=== PATIENT | female | born 1945 | race Caucasian/White ===

== ENCOUNTER 2022-07-08 09:55 | Emergency (ER) | payer OTHER ==
[2022-07-08 10:26] LABS: Urine Blood Trace-intact (Negative); Urine Glucose Negative (Negative); Urine Protein Negative (Negative)
[2022-07-08 10:34] LABS: Transitional Epithelial <5 /HPF (None Seen); Urine Bacteria <20 /HPF (<20); Urine Mucus Slight /HPF (None Seen); Urine WBC Clump Few /HPF (None Seen)
--- NOTE | 2022-07-08 10:39 | ER ---
Nurse's Notes [facility] Name: Nichole Saravia Age: 76 yrs Sex: Female : 1945 Arrival Date: 07/08/2022 Time: 09:56 Bed IW1 Private MD: ALICIA RIVER Diagnosis: UTI/ Urinary tract infection, site not specified Presentation: 07/08 10:00 Chief complaint: Patient states: Pt reports burning with urination and urinary kb3 frequency that began 2 weeks ago, she took a 7-day course of Keflex and symptoms resolved for 3 days but then returned. Pt states symptoms returned 3 days ago. Pt denies fever and flank pain. Coronavirus screen: Vaccine status: Patient reports being unvaccinated. Ebola Screen: Patient negative for fever greater than or equal to 101.5 degrees Fahrenheit, and additional compatible Ebola Virus Disease symptoms Patient denies exposure to infectious person. Patient denies travel to an Ebola-affected area in the 21 days before illness onset. Initial Sepsis Screen: Does the patient meet any 2 criteria? No. Patient's initial sepsis screen is negative. Does the patient have a suspected source of infection? No. Patient's initial sepsis screen is negative. Risk Assessment: Do you want to hurt yourself or someone else? Patient reports no desire to harm self or others. Onset of symptoms was July 05, 2022. 10:00 Method Of Arrival: Ambulatory kb3 10:00 Acuity: TORY 3 kb3 Triage Assessment: 10:03 General: Appears in no apparent distress. Behavior is calm, cooperative. Pain: Denies kb3 pain. Historical: - Allergies: 10:03 No Known Allergies; kb3 - PMHx: 10:03 Hypertensive disorder; Hypercholesterolemia; Cerebrovascular accident; Kidney stone; kb3 - PSHx: 10:03 Cholecystectomy; hysterectomy; Breast Bx; kb3 - Immunization history:: Adult Immunizations up to date, Client reports having NOT received the Covid vaccine. Last tetanus immunization: < 5 years ago. - Social history:: Smoking status: Patient reports the use of cigarette tobacco products, smokes one-half pack cigarettes per day. Screenin:46 Abuse screen: Denies threats or abuse. Denies injuries from another. Nutritional jl7 screening: No deficits noted. Tuberculosis screening: No symptoms or risk factors identified. Fall Risk None identified. Vital Signs: 10:00 BP 129 / 80; Pulse 77; Resp 18; Temp 97; Pulse Ox 99% ; Weight 68.04 kg; Height 5 ft. 4 kb3 in. (162.56 cm); Pain 0/10; 10:00 Body Mass Index 25.75 (68.04 kg, 162.56 cm) kb3 ED Course: 09:56 Patient arrived in ED. am2 09:56 ALICIA RIVER is Private Physician. am2 09:56 [facility] kb 09:56 Jaime Moran MD is Attending Physician. kb 10:03 Triage completed. kb3 10:03 Arm band placed on right wrist. kb3 10:32 Urine Microscopic Only Sent. kb3 10:33 Chandrakant Carrillo DO is Attending Physician. kb 10:42 Lexy Moctezuma, BOBBI is Primary Nurse. kb3 10:46 Patient has correct armband on for positive identification. jl7 10:46 No provider procedures requiring assistance completed. Patient did not have IV access jl7 during this emergency room visit. Administered Medications: No medications were administered Medication: 10:46 VIS not applicable for this client. jl7 Outcome: 10:38 Discharge ordered by MD. kb 10:46 Discharged to home ambulatory. jl7 10:46 Condition: stable 10:46 Discharge instructions given to patient, family, Instructed on discharge instructions, follow up and referral plans. medication usage, Demonstrated understanding of instructions, follow-up care, medications, Prescriptions given X 1. 10:48 Patient left the ED. jl7 Addendum: 07/11/2022 07:29 Addendum: Culture Results: Positive urine culture. No further action required. Bacteria i w sensitive to prescribed antibiotic. Signatures: Jesika Borden FNP-C FNP-Roxanna Caba RN RN iw Tom Huff RN RN jl7 Kylee Sterling am2 Lexy Moctezuma, RN RN kb3
--- NOTE | 2022-07-08 10:39 | EDPHYS ---
Physician Documentation [facility] Name: Nichole Saravia Age: 76 yrs Sex: Female : 1945 Arrival Date: 07/08/2022 Time: 09:56 Bed IW1 Private MD: ALICIA RIVER ED Physician Chandrakant Carrillo HPI: 07/08 10:36 This 76 yrs old Female presents to ER via Ambulatory with complaints of Urinary kb Frequency. 10:36 The patient presents with urinary symptoms, dysuria, frequency. Onset: The kb symptoms/episode began/occurred 4 day(s) ago. Modifying factors: The symptoms are alleviated by nothing, the symptoms are aggravated by urinating. Associated signs and symptoms: Pertinent positives: dysuria, urinary frequency. Severity of symptoms: At their worst the symptoms were moderate, in the emergency department the symptoms are unchanged. The patient has experienced similar episodes in the past. The patient has been recently seen by a physician:. Pt reports dysuria and urinary frequency for 4 days. States it is progressively getting worse. Reports she was seen at an 2 weeks ago for similar symptoms and put on keflex, but symptoms returned after completion of medication. Historical: - Allergies: 10:03 No Known Allergies; kb3 - PMHx: 10:03 Hypertensive disorder; Hypercholesterolemia; Cerebrovascular accident; Kidney stone; kb3 - PSHx: 10:03 Cholecystectomy; hysterectomy; Breast Bx; kb3 - Immunization history:: Adult Immunizations up to date, Client reports having NOT received the Covid vaccine. Last tetanus immunization: < 5 years ago. - Social history:: Smoking status: Patient reports the use of cigarette tobacco products, smokes one-half pack cigarettes per day. ROS: 10:35 Constitutional: Negative for fever, chills, and weight loss. kb 10:35 : Positive for urinary symptoms, urinary frequency, burning with urination. 10:35 All other systems are negative. Exam: 10:36 Constitutional: This is a well developed, well nourished patient who is awake, alert, kb and in no acute distress. Head/Face: Normocephalic, atraumatic. ENT: Moist Mucous membranes Cardiovascular: Regular rate and rhythm with a normal S1 and S2. No gallops, murmurs, or rubs. No pulse deficits. Respiratory: Respirations even and unlabored. No increased work of breathing. Talking in full sentences Abdomen/GI: Soft, non-tender. No distention Back: No spinal tenderness. No costovertebral tenderness. Full range of motion. Skin: Warm, dry with normal turgor. Normal color. MS/ Extremity: Pulses equal, no cyanosis. Neurovascular intact. Full, normal range of motion. Neuro: Awake and alert, GCS 15, oriented to person, place, time, and situation. Moves all extremities. Normal gait. Psych: Awake, alert, with orientation to person, place and time. Behavior, mood, and affect are within normal limits. Vital Signs: 10:00 BP 129 / 80; Pulse 77; Resp 18; Temp 97; Pulse Ox 99% ; Weight 68.04 kg; Height 5 ft. 4 kb3 in. (162.56 cm); Pain 0/10; 10:00 Body Mass Index 25.75 (68.04 kg, 162.56 cm) kb3 MDM: 09:56 Patient medically screened. kb 10:35 Data reviewed: vital signs, nurses notes. Data interpreted: Pulse oximetry: on room air kb is 99 %. Interpretation: normal. Counseling: I had a detailed discussion with the patient and/or guardian regarding: the historical points, exam findings, and any diagnostic results supporting the discharge/admit diagnosis, lab results, the need for outpatient follow up, a family practitioner, to return to the emergency department if symptoms worsen or persist or if there are any questions or concerns that arise at home. 07/08 10:02 Order name: Urine Microscopic Only; Complete Time: 10:35 kb 07/08 10:26 Order name: Urine Dipstick-Ancillary; Complete Time: 10:30 EDMS 07/08 10:02 Order name: Urine Dipstick-Ancillary (obtain specimen); Complete Time: 10:32 kb 07/08 10:37 Order name: Urine Culture EDMS Administered Medications: No medications were administered Disposition: 10:44 Co-signature as Attending Physician, Chandrakant MONTGOMERY was immediately available on-site ms3 in the Emergency Department for consultation in the care of the patient. Disposition Summary: 07/08/22 10:38 Discharge Ordered Location: Home kb Condition: Stable kb Diagnosis - UTI/ Urinary tract infection, site not specified kb Followup: kb - With: Emergency Department - When: As needed - Reason: Worsening of condition Followup: kb - With: Private Physician - When: 2 - 3 days - Reason: Recheck today's complaints, Continuance of care, Re-evaluation by your physician Discharge Instructions: - Discharge Summary Sheet kb - Urinary Tract Infection, Adult, [id number] kb Forms: - Medication Reconciliation Form kb - Thank You Letter kb - Antibiotic Education kb - Prescription Opioid Use kb Prescriptions: - Augmentin 875-125 mg Oral Tablet - take 1 tablet by ORAL route every 12 hours for 10 days; 20 tablet; Refills: 0, kb Product Selection Permitted Signatures: Dispatcher [employer] EDMS Jesika Borden, LIVESTOCK COUNTER-C LIVESTOCK COUNTER-Chandrakant Wilcox DO DO ms3 Lexy Moctezuma, RN RN kb3
[2022-07-08 10:52] VITALS: BP 129/80; TEMP 97; O2SAT 99
== END 2022-07-08 10:48 | disposition home or self-care (01) ==
LOC: ER 09:55
DX: N39.0 Urinary tract infection, site not specified (principal); I10 Essential (primary) hypertension; F17.210 Nicotine dependence, cigarettes, uncomplicated
CPT/HCPCS: 81003; 81015; 87077; 87086; 87088; 87186; 99283

== ENCOUNTER 2023-10-30 06:30 | Day surgery (SDC) | payer OTHER ==
[2023-10-30] MEDS: Ringers Lactate 1,000 ML IV ONE (07:15)
[2023-10-30 07:41] LABS: Absolute Basophils 0.1 K/uL (0-0.5); Absolute Eosinophils 0.1 K/uL (0-0.5); Absolute Lymphocytes (CBC) 1.6 K/uL (0.7-4.9); Absolute Monocytes 0.5 K/uL (0.1-1.3); Absolute Neutrophil 2.8 K/uL (1.8-8.0); Basophils % 2.3 % (0-1.3); Eosinophils % 2.3 % (0-4.4); Hematocrit 34.7 % (36.0-45.0); Hemoglobin 11.8 g/dL (12.0-15.0); Lymphocytes % 30.9 % (15.3-44.8); MCH 32.9 pg (27.0-35.0); MCHC 34.1 g/dL (32.0-36.0); MCV 96.6 fL (80-100); MPV 10.5 fL (7.6-11.3); Monocytes % 10.3 % (3.3-12.3); Neutrophils % 54.2 % (41.7-73.7); Nucleated Red Blood Cells % 0.3 % (0-0); Platelets 188 thou/uL (152-406); Red Cell Distribution Width 13.6 % (12.1-15.2)
[2023-10-30 07:59] LABS: Anion Gap 11.7 mEq/L (5.0-15.0); Potassium 3.7 mEq/L (3.5-5.1)
--- NOTE | 2023-10-30 08:09 | RAD REPORT ---
EXAM DESCRIPTION: RAD - Chest Pa And Lat (2 Views) - 10/30/2023 7:40 am CLINICAL HISTORY: PREOP. Hypertension COMPARISON: Chest Pa And Lat (2 Views) dated 11/16/2022 TECHNIQUE: PA and lateral views of the chest were obtained. FINDINGS: The lungs are clear. Heart size is normal and central vasculature is within normal limits. No pleural effusion or pneumothorax seen. No acute bony finding noted. IMPRESSION: No acute cardiopulmonary process.
[2023-10-30] MEDS ORDERED: FENTANYL CITR 100 MCG/2 ML ONE (09:20)
[2023-10-30] MEDS ORDERED: propofoL 200 MG/20 ML VIAL IV ONE (09:20)
[2023-10-30] MEDS ORDERED: ONDANSETRON 4 MG/2 ML VIAL ONE (09:20)
[2023-10-30] MEDS ORDERED: LIDOCAINE 2% MPF 5 ML VIAL ONE (09:20)
[2023-10-30] MEDS: CEFAZOLIN SODIUM 1 GM/VIAL ONE (09:29)
[2023-10-30] MEDS ORDERED: EPHEDRINE SULF 50 MG/ML VIAL ONE (09:53)
[2023-10-30] MEDS ORDERED: dexAMETHasone 10 MG/ML VIAL ONE (09:54)
--- NOTE | 2023-10-30 10:29 | P.BOP ---
Preoperative diagnosis: Prolapsed bleeding tender hemorrhoid Postoperative diagnosis: same Primary procedure: EUa, Anoscopy, rigid proctoscopy, internal and external hemorroidectomy Estimated blood loss: <10cc Specimen: Ext and Int hemorrhoid Findings: see dicta Anesthesia: General Complications: None Drain(s): Other (surgicall) Transferred to: Recovery Room Condition: Good
[2023-10-30 10:32] LABS: White Blood Cell Scan OK (OK)
[2023-10-30 10:33] LABS: Blood Morphology Comment NOT SEEN (NOT SEEN); Platelet Estimate ADEQ; Platelets Clumped FEW
[2023-10-30 11:15] VITALS: O2SAT 96
[2023-10-30] MEDS: CODEINE 30MG/APAP 300MG TAB ONE (11:35)
[2023-10-30 12:53] VITALS: BP 137/59; TEMP 97.3
--- NOTE | 2023-10-30 20:52 | DS ---
Date of Discharge: 10/30/2023 Diagnosis: Prolapsed bleeding, tender external and internal hemorrhoids, and mild rectal prolapse, r educible. Procedures: Examination under anesthesia, anoscopy, rigid proctoscopy, internal and external hemorrh oidectomy. Disposition: Home. Condition: Stable. Plan: Sitz baths 4 times a day and after every bowel movement, avoid constipation. KIM/LAURA Voice ID: [id number] Report ID: [id number]
--- NOTE | 2023-10-30 21:07 | OP ---
Date of Procedure: 10/30/2023 Surgeon: Celio Almonte MD Preoperative Diagnoses: Prolapsed bleeding, tender hemorrhoids. Postoperative Diagnosis: Internal and external prolapsed bleeding, tender hemorrhoids, but also she has mild rectal prolapse. Procedures: Examination under anesthesia, anoscopy, rigid proctoscopy, external and internal hemorrh oidectomy, 2 bundles. Estimated Blood Loss: Less than 10 cc. Specimens: External and internal hemorrhoids. Findings: The patient has multiple hemorrhoids. If you see that area, it has a small rectal prolaps e in that region that may have to be addressed by colorectal surgeon. Eventually, at this time, we a re going to trying to take care of the hemorrhoids for her bleeding at this moment and then give her a chance to eventually go to the colorectal surgeon to see if there is something that have to be done for the mild rectal prolapse, which probably is just hemorrhoids. Anesthesia: General. Complications: None. Gauze: Surgicel gauze. Indications For Procedure: This is a case of an 78-year-old patient who comes to us with bleeding he morrhoids. There are some we can see, some other ones come from inside the anus. So, in the office, it is hard to see. She is trying to avoid constipation and avoid straining and she has most of the time handled this. At this time, it was just getting worse, so she wants to have this removed. Not too long ago, probably about a year ago, she had also a similar case and this looks to be different. The benefits, alternatives, and risks of EUA, anoscopy, proctoscopy, possible hemorrhoidectomy fully discussed, which include, but not limited to infection, bleeding, damage to adjacent structures, ane sthesia complication, anal stricture and incontinence, VA, and . She also understands this may not relieve symptoms and she might need more than one surgical intervention. She understood, signed a consent. Description Of Procedure: The patient brought to the operating room, placed in supine position, anes thesia was done without complication. The patient was placed in lithotomy position with proper prote ction. A time-out was called. Rectal examination was done followed by a rigid proctoscopy to about 15 cm, we noticed internal and external hemorrhoids. In fact, not even before we even put the instru ments, we have already 2 hemorrhoids that are bleeding. At that moment, when we did rigid sig, we co nfirmed the area and then the anoscopy was placed with a window on the side to identify those 2 bleed ing hemorrhoids. One was internal and one was external. We noticed also the patient has a very mild rectal prolapse that is allowing all this area to bulge probably somehow contributed to this hemorrh oidal upsetting. So, we identified those 2 bundles and what we did is just we opened the anoderm and each one was removed individually in the posterior area of the anus. It was right and left posterio r lateral. In each case, we opened the anoderm and dissected the hemorrhoidal plexus away from the s phincter and transected that with the Harmonic Scalpel and the external was using the same technique and then each one was closed with the help of 3-0 chromic sutures. Once the anoderm was approximated , we checked we have a Surgicel over that area. We checked for any other bleeding or any hematomas, none. We injected some local anesthetic and when we checked once again, there was no bleeding. So, at that moment, I proceeded to remove the anoscope from that region, inspected the area once again, o btained instrument and sponge count, which was correct and then sent the patient to recovery room in stable condition. KIM/LAURA Voice ID: [id number] Report ID: [id number]
--- NOTE | 2023-10-31 14:28 | EKG ---
Test Date: 2023-10-30 Test Time: 06:56:51 Machine Bander And Cellophaner: YODIT MEASUREMENT RESULTS: Intervals: Rate: 72 MD: 160 QRSD: 98 QT: 400 QTc: 438 [place]: P: 33 MD: 160 QRS: -30 T: -8 INTERPRETIVE STATEMENTS: Normal sinus rhythm Left axis deviation Abnormal ECG Compared to ECG 11/16/2022 14:37:00 Left-axis deviation now present Left anterior fascicular block no longer present ST (T wave) deviation no longer present Electronically Signed On 10-31-23 14:23:56 CDT by Doug Clarke
== END 2023-10-30 12:05 | disposition home or self-care (01) ==
LOC: PRE 06:30 → OR 12:05
PROVIDERS: ATTEND Surgery
PROC: 06BY4ZC Excision of Hemorrhoidal Plexus, Percutaneous Endoscopic Approach (ICD-10-PCS; 2023-10-30)
PROC: 0DJD8ZZ Inspection of Lower Intestinal Tract, Via Natural or Artificial Opening Endoscopic (ICD-10-PCS; principal; 2023-10-30 08:30)
DX: K64.8 Other hemorrhoids (principal); K62.3 Rectal prolapse
CPT/HCPCS: 93005; 85025; 80048; 36415; 88302; 71046; 45300; 46260; J2704; J2001; J3010; J1100; J2405; J7120; J0690; 88304

== ENCOUNTER 2024-07-19 14:32 | Emergency (ER) | payer OTHER ==
--- NOTE | 2024-07-19 16:39 | ER ---
Nurse's Notes [facility] Name: Nichole Saravia Age: 79 yrs Sex: Female : 1945 Arrival Date: 07/19/2024 Time: 14:32 Bed Waiting Private MD: Diagnosis: Historical: ED Course: 07/19 14:46 Patient arrived in ED. mg5 15:30 Patient's name was called from ER lobby. No response. aa5 16:01 Kody Nicole FNP-C is PHCP. dr5 16:01 Nir Gandara MD is Attending Physician. dr5 16:10 Patient's name was called from ER lobby. No response. aa5 16:38 Patient's name was called from ER lobby. No response. Unable to locate patient. Will aa5 disposition as left without being seen by a provider. Administered Medications: No medications were administered Outcome: 16:38 Patient left the ED. aa5 Signatures: Mildred Torres RN RN aa5 Meghan Laird mg5 Kody Nicole FNP-C MANAGER MEDIA RELATIONS-Cdr5 Corrections: (The following items were deleted from the chart) 15:36 15:32 Chief complaint: Patient states: abdominal cramping and diarrhea that began 1 day aa5 ago. Pt reports fatigue, states "I just don't feel good" aa5 15:36 15:32 Transition of care: patient was received from another setting of care (long-term [facility] care facility), [facility] aa5 15:36 15:32 Onset of symptoms was July 2024 aa5 aa5 15:36 15:32 Risk Assessment: Do you want to hurt yourself or someone else? Patient reports no aa5 desire to harm self or others. aa5 15:36 15:32 Initial Sepsis Screen: Does the patient meet any 2 criteria? No. Patient's aa5 initial sepsis screen is negative. Does the patient have a suspected source of infection? No. Patient's initial sepsis screen is negative. aa5 15:36 15:32 Ebola Screen: Patient denies travel to an Ebola-affected area in the 21 days aa5 before illness onset. aa5 15:36 15:32 Coronavirus screen: diarrhea, aa5 aa5 15:36 15:32 Acuity: TORY 3 aa5 aa5 15:36 15:32 Method Of Arrival: Wheelchair aa5 aa5 15:36 15:32 BP 130 / 64; Pulse 78bpm; Resp 18bpm; Spontaneous; Pulse Ox 99% RA; Temp 98.7F aa5 Oral; 86.18 kg Reported; Height 5 ft. 7 in. Reported; BMI: 29.7; aa5 15:37 15:34 Triage completed. aa5 aa5 15:37 15:30 Arm band placed on aa5 aa5 15:37 15:30 Allergies: No Known Allergies; aa5 aa5 15:37 15:30 PMHx: Cerebrovascular accident; aa5 aa5 15:37 15:30 PMHx: Hypercholesterolemia; aa5 aa5 15:37 15:30 PMHx: Hypertensive disorder; aa5 aa5 15:37 15:30 PMHx: Kidney stone; aa5 aa5 15:37 15:30 PMHx: Psoriatic arthritis (Unknown); aa5 aa5 15:37 15:30 PMHx: Anxiety; aa5 aa5 15:37 15:30 PMHx: Atrial fibrillation; aa5 aa5 15:37 15:30 PMHx: GERD; aa5 aa5 15:37 15:30 PMHx: Diabetes mellitus; aa5 aa5 15:37 15:30 PMHx: Breast Cancer; aa5 aa5 15:37 15:30 PMHx: Skin cancer; aa5 aa5 15:37 15:30 PMHx: RLS; aa5 aa5 15:37 15:30 PMHx: Heart failure; aa5 aa5 15:37 15:30 PMHx: osteoarhritis; aa5 aa5 15:37 15:30 PSHx: Breast Bx; aa5 aa5 15:37 15:30 PSHx: Cholecystectomy; aa5 aa5 15:37 15:30 PSHx: hysterectomy; aa5 aa5 15:37 15:30 Social history: Smoking status: Patient denies any tobacco usage or history of. aa5 aa5 15:37 15:30 Infectious Disease History: Denies. aa5 aa5 15:37 15:30 Immunization history: Adult Immunizations unknown, aa5 aa5
== END 2024-07-19 16:38 | disposition left against medical advice (07) ==
LOC: ER 14:32
DX: Z02.9 Encounter for administrative examinations, unspecified (principal)

== ENCOUNTER 2024-12-30 11:14 | Day surgery (SDC) | payer OTHER ==
--- NOTE | 2024-12-29 10:08 | RAD REPORT ---
Procedure: Chest Pa And Lat (2 Views) HISTORY: Cough COMPARISON: 2023 FINDINGS: The lungs appear clear of acute infiltrate. No significant pleural effusion noted. The heart is mildly enlarged. IMPRESSION: No acute abnormality is displayed.
[2024-12-29 10:45] LABS: Absolute Basophils 0.1 K/uL (0-0.5); Absolute Eosinophils 0.1 K/uL (0-0.5); Absolute Monocytes 0.4 K/uL (0.1-1.3); Absolute Neutrophil 2.5 K/uL (1.8-8.0); Basophils % 2.7 % (0-1.3); Eosinophils % 1.6 % (0-4.4); Hematocrit 30.2 % (36.0-45.0); Hemoglobin 10.3 g/dL (12.0-15.0); Lymphocytes % 24.9 % (15.3-44.8); MCH 34.4 pg (27.0-35.0); MCHC 33.9 g/dL (32.0-36.0); MCV 101.6 fL (80-100); MPV 10.9 fL (7.6-11.3); Neutrophils % 60.8 % (41.7-73.7); Nucleated Red Blood Cells % 0.1 % (0-0); Platelets 164 thou/uL (152-406); RBC Red Blood Cell Count 2.98 M/uL (3.86-4.86); Red Cell Distribution Width 14.3 % (12.1-15.2)
[2024-12-29 10:51] LABS: PT Prothrombin Time 11.9 SECONDS (10-13.0); PTT, Activated Partial Thromb 27.5 SECONDS (27.2-37.4); Protime INR 1.05
[2024-12-29 11:10] LABS: Anion Gap 7.5 mEq/L (5.0-15.0); Potassium 3.5 mEq/L (3.5-5.1)
[2024-12-30] MEDS ORDERED: NA CHLORIDE 0.9% 500 ML ONE (11:19)
[2024-12-30] MEDS ORDERED: LIDOCAINE 1% 20 ML MDV ONE (12:56)
[2024-12-30] MEDS ORDERED: HEPARIN 5000 UNIT/ML 1 ML VIAL ONE (12:56)
[2024-12-30] MEDS ORDERED: CLOPIDOGREL 75 MG TABLET ONE (12:56)
[2024-12-30] MEDS ORDERED: HEPARIN 10,000 UNIT/10 ML VIAL IV ONE (12:56)
[2024-12-30] MEDS ORDERED: VERAPAMIL HCL 10 MG/4 ML VIAL IV ONE (12:56)
[2024-12-30] MEDS ORDERED: HEPA 1000U/500MLS 2,000 UNIT/1,000 ML BAG IV ONE (12:56)
[2024-12-30] MEDS ORDERED: TICAGRELOR 90 MG TABLET PO ONE (12:56)
[2024-12-30] MEDS ORDERED: FENTANYL CITR 100 MCG/2 ML ONE (12:57)
[2024-12-30] MEDS ORDERED: MIDAZOLAM HCL 2 MG/2 ML INJ ONE (12:57)
[2024-12-30] MEDS ORDERED: ASPIRIN 325 MG TAB ONE (12:57)
[2024-12-30] MEDS ORDERED: ATROPINE SULF 1 MG/10 ML SYR IV ONE (12:58)
[2024-12-30] MEDS ORDERED: NITROGLYCERIN 0.4 MG/TAB SL ONE (14:05)
[2024-12-30] MEDS ORDERED: ONDANSETRON 4 MG/2 ML VIAL ONE (14:09)
[2024-12-30 19:20] VITALS: BP 143/59; O2SAT 94
--- NOTE | 2025-01-05 12:49 | EKG ---
Test Date: 2024-12-29 Test Time: 09:18:23 Cartridge Assembling Machine Adjuster: GWENDOLYN MEASUREMENT RESULTS: Intervals: Rate: 69 VT: 152 QRSD: 100 QT: 394 QTc: 422 Welcome: P: 42 VT: 152 QRS: -42 T: 98 INTERPRETIVE STATEMENTS: Normal sinus rhythm Left axis deviation Nonspecific ST and T wave abnormality Abnormal ECG Compared to ECG 10/30/2023 06:56:51 ST (T wave) deviation now present Electronically Signed On 01-05-25 12:33:35 CDT by Marcell Keenan
== END 2024-12-30 19:43 | disposition home or self-care (01) ==
LOC: CCL 11:14
PROVIDERS: ADMIT Internal Medicine; ATTEND Internal Medicine
DX: I25.110 Atherosclerotic heart disease of native coronary artery with unstable angina pectoris (principal); I65.23 Occlusion and stenosis of bilateral carotid arteries; I10 Essential (primary) hypertension; E78.5 Hyperlipidemia, unspecified; F17.210 Nicotine dependence, cigarettes, uncomplicated; Z79.899 Other long term (current) drug therapy
CPT/HCPCS: 93005; 85025; 80048; 36415; 85610; 82947; 85347; 85730; 71046; 93458; 76937; C1893; Q9967; C1725; C9600; J1644 ×2; J2003; J2250; J3010; J2405; J7040; 99152; J0461

== ENCOUNTER 2025-05-14 12:45 | Inpatient (IN) | payer OTHER ==
[2025-05-14 13:35] LABS: Absolute Lymphocytes (CBC) 0.5 K/uL (0.7-4.9); Hematocrit 24.2 % (36.0-45.0); Hemoglobin 8.1 g/dL (12.0-15.0); MCH 32.1 pg (27.0-35.0); MCHC 33.3 g/dL (32.0-36.0); MCV 96.3 fL (80-100); MPV 10.1 fL (7.6-11.3); Nucleated RBC Absolute Count 0.0 (0-0); Nucleated Red Blood Cells % 0.1 % (0-0); RBC Red Blood Cell Count 2.51 M/uL (3.86-4.86); White Blood Count 4.30 thou/uL (4.3-10.9)
[2025-05-14 13:46] LABS: PT Prothrombin Time 13.6 SECONDS (10-13.0); Protime INR 1.21
--- NOTE | 2025-05-14 13:56 | RAD REPORT ---
EXAM: Chest Single View HISTORY: 79 years Female MALAISE COMPARISON: 04/22/2025 FINDINGS: LUNGS/PLEURA: Diffuse prominence of the pulmonary interstitium with small bilateral effusions. CARDIAC/MEDIASTINUM: Stable size and configuration. UPPER ABDOMEN: Surgical clips in the right upper quadrant. BONES: No acute abnormality. LINES/TUBES/OTHER: N/A IMPRESSION: Ill-defined bilateral airspace disease and small effusions may reflect edema and/or pneumonia. Aerati on is fractionally improved since 04/22/2025.
[2025-05-14 14:02] LABS: ALT/SGPT 18.0 U/L (13-56); AST/SGOT 37.0 U/L (15-37); Albumin 2.4 g/dL (3.4-5.0); Albumin/Globulin Ratio 0.8 (1.1-1.8); Alkaline Phosphatase 67.0 U/L (45-117); Anion Gap 9.2 mEq/L (5.0-15.0); BUN Blood Urea Nitrogen 10.0 mg/dL (7-18); Bilirubin Indirect, Calculated 0.6 mg/dL (0.2-0.8); Globulin 2.9 g/dL (2.3-3.5); Glucose Level 103.0 mg/dL (74-106); Lipase 16.0 U/L (13-75); NT PRO-BNP 1366.0 pg/mL (<450); Potassium 3.2 mEq/L (3.5-5.1); Troponin High Sensitivity 23.7 pg/mL (<58.9)
[2025-05-14 14:02] LABS: Sqamous Epithelial 20-50 /HPF (None Seen); Urine Crystals Unidentified Many /HPF (None Seen); Urine Culture Reflex Order NOT NEEDED; Urine Microscopic Reflex YN ORDER UMIC; Urine WBC Clump Occasional /HPF (None Seen); Urine Yeast (Budding) Few /HPF (None Seen)
[2025-05-14 14:04] LABS: Magnesium 0.9 mg/dL (1.6-2.4)
[2025-05-14 14:05] LABS: Influenza A Ag Negative; Influenza B Ag Negative; SARS-CoV-2 Antigen Rapid Res Negative (Negative)
[2025-05-14] MEDS ORDERED: POTASSIUM 25 MEQ EFFERV TAB ONE (14:20)
[2025-05-14] MEDS ORDERED: NA CHLORIDE 0.9% 500 ML ONE (14:20)
[2025-05-14] MEDS ORDERED: ONDANSETRON 4 MG/2 ML VIAL ONE (14:20)
[2025-05-14] MEDS ORDERED: MAGNESIUM SULFATE 1 gm IVPB 2 GM/200 ML BAG IV ONE (14:21)
--- NOTE | 2025-05-14 14:26 | ER ---
Nurse's Notes [facility] Name: Nichole Saravia Age: 79 yrs Sex: Female : 1945 Arrival Date: 05/14/2025 Time: 12:45 Bed 15 Private MD: Diagnosis: Hypomagnesemia, hypokalemia, known anemia, generalized weakness Presentation: 05/14 12:49 Chief complaint: EMS states: toned out for nausea, not feeling well, change in behavior iw per family. Coronavirus screen: At this time, the client does not indicate any symptoms associated with coronavirus-19. Ebola Screen: No symptoms or risks identified at this time. Initial Sepsis Screen: Does the patient meet any 2 criteria? No. Patient's initial sepsis screen is negative. Does the patient have a suspected source of infection? No. Patient's initial sepsis screen is negative. Risk Assessment: Do you want to hurt yourself or someone else? Patient reports no desire to harm self or others. 12:49 Method Of Arrival: EMS: [facility] iw 12:50 Acuity: TORY 3 iw Historical: - Allergies: 13:52 No Known Allergies; iw - Home Meds: 14:41 atorvastatin 20 mg oral tablet every day at bedtime [Active]; aspirin 81 mg Oral iw tablet, delayed release (enteric coated) daily [Active]; fenofibrate micronized 134 mg oral capsule daily [Active]; fluoxetine 20 mg Oral tablet daily [Active]; pantoprazole 40 mg oral tablet, delayed release (enteric coated) daily [Active]; losartan 100 mg oral tablet daily [Active]; quetiapine 50 mg oral tablet nightly [Active]; quetiapine 25 mg oral tablet nightly [Active]; - PMHx: 12:51 Hypercholesterolemia; Hypertensive disorder; iw - Immunization history:: Adult Immunizations unknown. - Infectious Disease History:: Denies. - Social history:: Smoking status: unknown. Screenin:33 [facility] ED Fall Risk Assessment (Adult) History of falling in the last 3 months, af3 including since admission No falls in past 3 months (0 pts) Confusion or Disorientation No (0 pts) Intoxicated or Sedated No (0 pts) Impaired Gait No (0 pts) Mobility Assist Device Used No (0 pt) Altered Elimination No (0 pt) Score/Fall Risk Level 0 - 2 = Low Risk Oriented to surroundings, Maintained a safe environment, Educated pt \T\ family on fall prevention, incl call for assistance when getting out of bed. Abuse screen: Denies threats or abuse. Denies injuries from another. Nutritional screening: No deficits noted. Tuberculosis screening: No symptoms or risk factors identified. Assessment: 13:33 General: Appears in no apparent distress. comfortable, well groomed, well developed, af3 Behavior is calm, cooperative, appropriate for age. Pain: Denies pain. Neuro: Level of Consciousness is awake, alert, obeys commands, Oriented to person, place, time, situation, Appropriate for age. Cardiovascular: Patient's skin is warm and dry. Respiratory: Airway is patent Respiratory effort is even, unlabored, Respiratory pattern is regular, symmetrical. GI: Abdomen is flat, Reports nausea. 14:42 Reassessment: Patient appears in no apparent distress at this time. No changes from af3 previously documented assessment. Patient and/or family updated on plan of care and expected duration. Pain level reassessed. 15:52 Reassessment: Patient appears in no apparent distress at this time. No changes from af3 previously documented assessment. Patient and/or family updated on plan of care and expected duration. Pain level reassessed. 15:52 Reassessment: Patient appears in no apparent distress at this time. No changes from af3 previously documented assessment. Patient and/or family updated on plan of care and expected duration. Pain level reassessed. Vital Signs: 12:50 BP 162 / 80; Pulse 75; Resp 19; Temp 97.6(TE); Pulse Ox 99% on 2 lpm NC; iw 14:43 BP 168 / 67; Pulse 77; Resp 18; Pulse Ox 100% on 2 lpm NC; af3 ED Course: 12:47 Patient arrived in ED. sp3 12:47 Nir Gandara MD is Attending Physician. sp3 12:51 Triage completed. iw 13:02 Roxanna Tabor, RN is Primary Nurse. iw 13:04 EKG done, by ED staff, reviewed by Nir Gandara MD. rk3 13:32 XRAY Chest (1 view) In Process Unspecified. EDMS 13:33 No provider procedures requiring assistance completed. af3 13:33 Patient has correct armband on for positive identification. Bed in low position. Call af3 light in reach. Provided Education on: call light use . 13:35 Arm band placed on. iw 14:25 Burak Romo MD is Hospitalizing Provider. sp3 16:15 Patient admitted, IV remains in place. iw Administered Medications: 14:23 Not Given (Duplicate Order): ondansetron 4 mg IVP once; over 2 minutes iw 14:42 Drug: Magnesium Sulfate IVPB 2 grams IVPB once over 2 hrs Route: IVPB; Infused Over: 2 af3 hrs; Site: right antecubital; 16:15 Follow up: IV Status: Infusion continued upon admission iw 16:41 Follow up: Response: No adverse reaction iw 14:42 Drug: Potassium PO Effervescent Tablet 50 mEq PO once; dissolve in 4 ounces of water or af3 juice Route: PO; 15:32 Follow up: Response: No adverse reaction af3 14:42 Drug: NS 0.9% IV 500 ml 500 ml IV at 1 bolus once; to be given as a bolus over 30 af3 minutes Volume: 500 ml; Route: IV; Rate: 1 bolus; Site: right antecubital; 15:32 Follow up: Response: No adverse reaction; IV Status: Completed infusion; IV Intake: af3 500ml 14:42 Drug: Ondansetron IVP 4 mg IVP once; over 2 minutes Route: IVP; Site: right antecubital;af3 15:32 Follow up: Response: No adverse reaction af3 15:32 Drug: Potassium Chloride IV 20 mEq IV at calculated rate once; administer over 1-2 af3 hours Route: IV; Rate: calculated rate; Site: right antecubital; 16:15 Follow up: IV Status: Infusion continued upon admission iw 16:22 Follow up: Response: No adverse reaction iw 16:41 Follow up: Response: No adverse reaction iw Medication: 13:33 VIS not applicable for this client. af3 Intake: 15:32 IV: 500ml; Total: 500ml. af3 Outcome: 14:26 Decision to Hospitalize by Provider. sp3 16:15 Admitted to Med/surg accompanied by tech, family with patient, with chart, iw 16:15 Condition: good 16:15 Discharge instructions given to patient, family, Instructed on the need for admit, Demonstrated understanding of instructions, 16:16 Patient left the ED. iw Signatures: Dispatcher [facility] Roxanna Swanson RN RN iw Nir Gandara MD MD sp3 Glenis Spann RN RN af3 Shen Ortega rk3 Corrections: (The following items were deleted from the chart) 13:52 12:50 BP 162 / 80; Pulse 75bpm; Resp 19bpm; Pulse Ox 99% 2 lpm Nasal Cannula; iw
--- NOTE | 2025-05-14 14:26 | EDPHYS ---
Physician Documentation [facility] Name: Nichole Saravia Age: 79 yrs Sex: Female : 1945 Arrival Date: 05/14/2025 Time: 12:45 Bed 15 Private MD: ED Physician Nir Gandara HPI: 05/14 12:53 This 79 yrs old Female presents to ER via EMS with complaints of Nausea, weakness, sp3 malaise. 12:53 79-year-old female with history of hyperlipidemia, hypertension presents to the ED via sp3 EMS for chief complaint generalized weakness, malaise and mild nausea. She denies any fever, chest pain, shortness of breath, abdominal pain, headache, syncope, symptoms, [employer] PL[employer]ING symptoms, or any other signs or symptoms on ROS at this time.. Historical: - Allergies: 13:52 No Known Allergies; iw - Home Meds: 14:41 atorvastatin 20 mg oral tablet every day at bedtime [Active]; aspirin 81 mg Oral iw tablet, delayed release (enteric coated) daily [Active]; fenofibrate micronized 134 mg oral capsule daily [Active]; fluoxetine 20 mg Oral tablet daily [Active]; pantoprazole 40 mg oral tablet, delayed release (enteric coated) daily [Active]; losartan 100 mg oral tablet daily [Active]; quetiapine 50 mg oral tablet nightly [Active]; quetiapine 25 mg oral tablet nightly [Active]; - PMHx: 12:51 Hypercholesterolemia; Hypertensive disorder; iw - Immunization history:: Adult Immunizations unknown. - Infectious Disease History:: Denies. - Social history:: Smoking status: unknown. ROS: 12:56 Constitutional: Negative for fever, chills, and weight loss, Eyes: Negative for injury, sp3 pain, redness, and discharge, Neck: Negative for injury, pain, and swelling, Cardiovascular: Negative for chest pain, palpitations, and edema, Respiratory: Negative for shortness of breath, cough, wheezing, and pleuritic chest pain, Back: Negative for injury and pain, : Negative for injury, bleeding, discharge, and swelling, MS/Extremity: Negative for injury and deformity, Skin: Negative for injury, rash, and discoloration, Psych: Negative for depression, anxiety, suicide ideation, homicidal ideation, and hallucinations, Allergy/Immunology: Negative for hives, rash, and allergies, Endocrine: Negative for neck swelling, polydipsia, polyuria, polyphagia, and marked weight changes, 12:56 All other systems are negative, Exam: 12:56 Constitutional: This is a well developed, well nourished patient who is awake, alert, sp3 and in no acute distress. Head/Face: Normocephalic, atraumatic. Eyes: Pupils equal round and reactive to light, extra-ocular motions intact. Lids and lashes normal. Conjunctiva and sclera are non-icteric and not injected. Cornea within normal limits. Periorbital areas with no swelling, redness, or edema. ENT: Nares patent. No nasal discharge, no septal abnormalities noted. External auditory canals are clear. Oropharynx with no redness, swelling, or masses, exudates, or evidence of obstruction, uvula midline. Mucous membranes moist. Neck: Trachea midline, no thyromegaly or masses palpated, and no cervical lymphadenopathy. Supple, full range of motion without nuchal rigidity, or vertebral point tenderness. No Meningismus. Chest/axilla: Normal chest wall appearance and motion. Nontender with no deformity. No lesions are appreciated. Cardiovascular: Regular rate and rhythm with a normal S1 and S2. No gallops, murmurs, or rubs. Normal PMI, no JVD. No pulse deficits. Respiratory: Lungs have equal breath sounds bilaterally, clear to auscultation and percussion. No rales, rhonchi or wheezes noted. No increased work of breathing, no retractions or nasal flaring. Abdomen/GI: Soft, non-tender, with normal bowel sounds. No distension or tympany. No guarding or rebound. No evidence of tenderness throughout. Back: No spinal tenderness. No costovertebral tenderness. Full range of motion. Skin: Warm, dry with normal turgor. Normal color with no rashes, no lesions, and no evidence of cellulitis. MS/ Extremity: Pulses equal, no cyanosis. Neurovascular intact. Full, normal range of motion. Neuro: Awake and alert, GCS 15, oriented to person, place, time, and situation. Cranial nerves II-XII grossly intact. Motor strength 5/5 in all extremities. Sensory grossly intact. Cerebellar exam normal. Normal gait. Psych: Awake, alert, with orientation to person, place and time. Behavior, mood, and affect are within normal limits. 13:16 ECG was reviewed by the Attending Physician. EKG demonstrates normal sinus rhythm at 72 sp3 bpm with normal intervals, normal QRS with QTc 453, leftward axis poor R wave progression and nonspecific diffuse ST/T-segment's without evidence of acute ischemia. Vital Signs: 12:50 BP 162 / 80; Pulse 75; Resp 19; Temp 97.6(TE); Pulse Ox 99% on 2 lpm NC; iw 14:43 BP 168 / 67; Pulse 77; Resp 18; Pulse Ox 100% on 2 lpm NC; af3 MDM: 12:47 Medical Screening Exam initiated sp3 12:56 Data reviewed: vital signs, nurses notes, old medical records, lab test result(s), EKG, sp3 radiologic studies. ED course: 79-year-old female with vague symptoms of generalized weakness and malaise. Differential diagnosis includes dehydration, electrolyte disturbance, UTI, viral illness, COVID-19, influenza, pneumonia, to lesser degree ACS or other pathway. Workup will include EKG, chest x-ray, viral swabs, UA, general labs and supportive care. Vital signs are currently normal.. 14:24 ED course: Patient with low magnesium and potassium levels which we will replenish via sp3 IV. Patient is already on iron supplements p.o. for her anemia. Patient to be admitted observation status.. 05/14 12:48 Order name: Basic Metabolic Panel; Complete Time: 14:12 sp3 05/14 12:48 Order name: CBC with Diff; Complete Time: 14:58 sp3 05/14 12:48 Order name: LFT's; Complete Time: 14:12 sp3 05/14 12:48 Order name: Magnesium; Complete Time: 14:12 sp3 05/14 12:48 Order name: NT PRO-BNP; Complete Time: 14:12 sp3 05/14 12:48 Order name: PT-INR; Complete Time: 14:03 sp3 05/14 12:48 Order name: Troponin HS; Complete Time: 14:12 sp3 05/14 12:48 Order name: COVID-19 Ag + Flu A+B Ag; Complete Time: 14:12 sp3 05/14 12:48 Order name: UA Rfx Polo Cult if indicated; Complete Time: 14:03 sp3 05/14 12:48 Order name: Lipase; Complete Time: 14:12 sp3 05/14 13:40 Order name: CBC Smear Scan; Complete Time: 14:58 EDMS 05/14 15:00 Order name: CBC with Automated Diff EDMS 05/14 15:00 Order name: CBC with Automated Diff EDMS 05/14 15:00 Order name: CBC with Automated Diff EDMS 05/14 15:00 Order name: CBC with Automated Diff EDMS 05/14 15:00 Order name: CBC with Automated Diff EDMS 05/14 15:00 Order name: Comprehensive Metabolic Panel EDMS 05/14 15:00 Order name: Comprehensive Metabolic Panel EDMS 05/14 15:00 Order name: Comprehensive Metabolic Panel EDMS 05/14 15:00 Order name: Comprehensive Metabolic Panel EDMS 05/14 15:00 Order name: Comprehensive Metabolic Panel EDMS 05/14 15:00 Order name: Magnesium EDMS 05/14 15:00 Order name: Magnesium EDMS 05/14 15:00 Order name: Magnesium EDMS 05/14 15:00 Order name: Magnesium EDMS 05/14 15:00 Order name: Magnesium EDMS 05/14 15:00 Order name: Phosphorus EDMS 05/14 15:00 Order name: Phosphorus EDMS 05/14 15:00 Order name: Phosphorus EDMS 05/14 15:00 Order name: Phosphorus EDMS 05/14 15:00 Order name: Phosphorus EDMS 05/14 15:00 Order name: T4 Free EDMS 05/14 15:00 Order name: T4 Free EDMS 05/14 15:00 Order name: Thyroid Stimulating Hormone EDMS 05/14 15:00 Order name: Thyroid Stimulating Hormone EDMS 05/14 12:48 Order name: XRAY Chest (1 view); Complete Time: 14:03 sp3 05/14 15:00 Order name: Physical Therapy Consult EDMS 05/14 15:00 Order name: Speech Therapy Consult EDMS 05/14 12:48 Order name: Cardiac monitoring; Complete Time: 13:03 sp3 05/14 12:48 Order name: EKG - Nurse/Tech; Complete Time: 13:03 sp3 05/14 12:48 Order name: IV Saline Lock; Complete Time: 13:26 sp3 05/14 12:48 Order name: Labs collected and sent; Complete Time: 13:26 sp3 05/14 12:48 Order name: O2 Per Protocol; Complete Time: 13:03 sp3 05/14 12:48 Order name: O2 Sat Monitoring; Complete Time: 13:03 sp3 Administered Medications: 14:23 Not Given (Duplicate Order): ondansetron 4 mg IVP once; over 2 minutes iw 14:42 Drug: Magnesium Sulfate IVPB 2 grams IVPB once over 2 hrs Route: IVPB; Infused Over: 2 af3 hrs; Site: right antecubital; 16:15 Follow up: IV Status: Infusion continued upon admission iw 16:41 Follow up: Response: No adverse reaction iw 14:42 Drug: Potassium PO Effervescent Tablet 50 mEq PO once; dissolve in 4 ounces of water or af3 juice Route: PO; 15:32 Follow up: Response: No adverse reaction af3 14:42 Drug: NS 0.9% IV 500 ml 500 ml IV at 1 bolus once; to be given as a bolus over 30 af3 minutes Volume: 500 ml; Route: IV; Rate: 1 bolus; Site: right antecubital; 15:32 Follow up: Response: No adverse reaction; IV Status: Completed infusion; IV Intake: af3 500ml 14:42 Drug: Ondansetron IVP 4 mg IVP once; over 2 minutes Route: IVP; Site: right antecubital;af3 15:32 Follow up: Response: No adverse reaction af3 15:32 Drug: Potassium Chloride IV 20 mEq IV at calculated rate once; administer over 1-2 af3 hours Route: IV; Rate: calculated rate; Site: right antecubital; 16:15 Follow up: IV Status: Infusion continued upon admission iw 16:22 Follow up: Response: No adverse reaction iw 16:41 Follow up: Response: No adverse reaction iw Disposition Summary: 05/14/25 14:26 Hospitalization Ordered Notes: Hospitalization Status: Observation sp3 Provider: Burak Romo Location: Telemetry/MedSur (observation) sp3 Condition: Stable sp3 Problem: an acute exacerbation sp3 Symptoms: have worsened sp3 Bed/Room Type: Standard sp3 Room Assignment: 231(05/14/25 15:08) eb Diagnosis - Hypomagnesemia, hypokalemia, known anemia, generalized weakness sp3 Forms: - Medication Reconciliation Form sp3 - SBAR form sp3 - Leadership Thank You Letter sp3 Signatures: Dispatcher [employer] EDMS Roxanna Tabor, RN RN iw Salvador Fernandez, DATA EXAMINATION CLERK-C DATA EXAMINATION CLERK-Cla1 Liseth Newman Setul, MD MD sp3 Glenis Spann, RN RN af3 Corrections: (The following items were deleted from the chart) 12:48 12:48 BASIC METABOLIC PANEL+C.LAB.BRZ ordered. EDMS EDMS 12:48 12:48 CBC+H.LAB.BRZ ordered. EDMS EDMS 12:48 12:48 HEPATIC FUNCTION+C.LAB.BRZ ordered. EDMS EDMS 12:48 12:48 MAGNESIUM+C.LAB.BRZ ordered. EDMS EDMS 12:48 12:48 PROBNP+C.LAB.BRZ ordered. EDMS EDMS 12:48 12:48 PROTIME (+INR)+COAG.LAB.BRZ ordered. EDMS EDMS 12:48 12:48 Troponin High Sensitivity+C.LAB.BRZ ordered. EDMS EDMS 12:48 12:48 COVID-19 Ag + Flu A+B Ag+I.LAB.BRZ ordered. EDMS EDMS 12:48 12:48 UA Rfx Polo Cult if indicated+U.LAB.BRZ ordered. EDMS EDMS 12:48 12:48 LIPASE+C.LAB.BRZ ordered. EDMS EDMS 12:49 12:49 Chest Single View+RAD.RAD.BRZ ordered. EDMS EDMS 15:08 14:26 sp3 eb
[2025-05-14 14:47] LABS: Blood Morphology Comment NOTED (NOT SEEN); Poikilocytosis SLIGHT; Stomatocytes 1+; White Blood Cell Scan OK (OK)
[2025-05-14] MEDS ORDERED: ACETAMINOPHEN 325 MG TABLET PO PRN (14:55)
[2025-05-14] MEDS ORDERED: SODIUM CHLORIDE 0.9% 10ML INJ IV PRN (14:55)
[2025-05-14] MEDS ORDERED: KCL 20 MEQ/100 mL IVPB 100 ML IV ONE (15:30)
--- NOTE | 2025-05-14 15:36 | P.HP ---
Certification for Inpatient Patient admitted to: Inpatient With expected LOS: >2 Midnights Patient will require the following post-hospital care: None Practitioner: I am a practitioner with admitting privileges, knowledge of patient current condition, hospital course, and medical plan of care. Services: Services provided to patient in accordance with Admission requirements found in Title 42 Section 412.3 of the Code of Federal Regulations <Salvador Fernandez - Last Filed: 05/14/25 15:32> Patient History Date of Service: 05/14/25 Reason for admission: Hypomagnesemia, weakness History of Present Illness: 79-year-old female with history of GERD, anemia, hypertension, hyperlipidemia, recent hospitalization for E. coli bacteremia and UTI/pneumonia, issues with vertigo/nausea/vomiting for many years presents the emergency department with chief complaint of fatigue, weakness. He was recently hospitalized from 04/12 to 04/24 at her facility, as he was subsequently discharged to retirement facility and was discharged from there to home around 1 week ago. She does have home health and apparently they went to go check on her today and referred to the emergency department for evaluation given how she is feeling. Patient was evaluated today in the emergency department her labs were significant for a hemoglobin 8.1 hematocrit 24.2 platelet count of 97 potassium 3.2 magnesium 0.9 albumin 2.9 UA does not appear concerning for infection chest x-ray was obtained and showed ill-defined bilateral L space disease and small effusions which may reflect edema and/or pneumonia. Aeration is fractionally improved since 04/22/2025. Given her electrolyte imbalances, weakness, poor oral intake with nausea and vomiting ED provider wishes to admit for further evaluation and management. - Past Medical/Surgical History Diabetic: No -: Dizziness/vertigo -: Arthritis. -: Myocardial infarction with stent placement on 12/30/24 -: Kidney stones. -: Essential hypertension. -: GERD -: Depression. -: Chronic pain. -: Hyperlipidemia -: Coronary stent placement 12/30/2024. -: Breast biopsy. -: Appendectomy. -: Hysterectomy. - Family History Father -: Cancer Mother -: Heart disease, Hypertension Brother -: Heart disease, Hypertension - Social History Alcohol use: No CD- Drugs: No Caffeine use: Yes <Salvador Fernandez - Last Filed: 05/14/25 15:32> Date of Service: 05/14/25 <RomoKrishna [email or web address] Concepcion - Last Filed: 05/16/25 21:13> Allergies No Known Allergies Allergy (Verified 04/12/25 21:57) Home Medications: Atorvastatin Calcium [Lipitor] 20 mg PO BEDTIME 11/16/22 Fenofibrate,Micronized [Fenofibrate] 134 mg PO DAILY 11/16/22 Losartan Potassium 100 mg PO DAILY 11/16/22 Pantoprazole [Protonix Tab] 40 mg PO DAILY 11/16/22 Quetiapine Fumarate [Seroquel] 75 mg PO BEDTIME 11/16/22 Aspirin 81 mg PO DAILY 04/12/25 Ondansetron HCl 8 mg PO DAILY 04/12/25 Clopidogrel Bisulfate [Plavix] 75 mg PO DAILY 05/14/25 Review of Systems 10-point ROS is otherwise unremarkable General: Weakness, Malaise Gastrointestinal: Nausea, Vomiting <Salvador Fernandez - Last Filed: 05/14/25 15:32> 10-point ROS is otherwise unremarkable <Burak Romo - Last Filed: 05/16/25 21:13> Physical Examination - Physical Exam General: Alert, In no apparent distress, Oriented x3 HEENT: Atraumatic, PERRLA, EOMI Neck: Supple, 2+ carotid pulse no bruit, No LAD Respiratory: Clear to auscultation bilaterally, Normal air movement Cardiovascular: Regular rate/rhythm, Normal S1 S2 Gastrointestinal: Normal bowel sounds, No tenderness Musculoskeletal: No tenderness Integumentary: No rashes Neurological: Normal speech, Normal affect - Studies Laboratory Data (last 24 hrs) 05/14/25 05/14/25 05/14/25 13:23 13:23 13:23 WBC 4.30 Hgb 8.1 L Hct 24.2 L Plt Count 97 L PT 13.6 H INR 1.21 Sodium 143 Potassium 3.2 L BUN 10 Creatinine 1.47 H Glucose 103 Magnesium 0.9 L* Total Bilirubin 1.0 AST 37 ALT 18 Alkaline Phosphatase 67 Lipase 16 <Salvador Fernandez - Last Filed: 05/14/25 15:32> Assessment and Plan - Plan Assessment: Nausea/vomiting Hypokalemia/hypomagnesemia GERD SAVANA CAD Anemia/thrombocytopenia Hypertension Hyperlipidemia Weakness/deconditioning Plan: Nausea/vomiting Hypokalemia/hypomagnesemia Hypoalbuminemia GERD SAVANA CAD Reports very poor intake over the course of the last 15 days States chronic issues with vertigo and nausea/vomiting contributing Also reports that many foods that they get the back of her throat causes her to feel nauseous and vomit immediately Patient was attempting to arrange for EGD recently but waiting to be cleared from cardiology given her recent stent 12/30 Continue Protonix, Carafate PT consultation, speech consultation Gentle IV fluids, monitor chemistry daily Electrolyte protocols in place Anemia/thrombocytopenia Monitor CBC daily Hypertension Hyperlipidemia Continue home medications when verified Weakness/deconditioning PT consultation, was recently discharged from SNF DVT PPX: SCD Code status: Full code Discharge Plan: Home Plan to discharge in: Greater than 2 days - Advance Directives Does patient have a Living Will: No Does patient have a Durable POA for Healthcare: No - Code Status/Comfort Care Code Status Assessed: Yes (Full code) Critical Care: No Time Spent Managing Pts Care (In Minutes): 70 <Salvador Fernandez - Last Filed: 05/14/25 15:32> Date of Service: 05/14/25 Patient was seen and examined. Events of the last 24 hours have been noted. Spoke with with VIET regarding patient's clinical picture after evaluating and examining the patient independently. I performed a substantial part of the MDM during this patient's care today. I personally made or approved the documented management plan and acknowledge its risk of complications. I agree with the findings and documentation provided in the VIET's notes. Patient with difficulty with eating. Patient with odynophagia. Will go ahead and continue with antifungal and will go ahead and start patient on diet. Will encourage oral intake and do a calorie count if needed. Monitor electrolytes. Physical therapy evaluation. Discharge planning for retirement facility placement or DC to [facility]. <Burak Romo - Last Filed: 05/16/25 21:13>
[2025-05-14] MEDS: SUCRALFATE 1 GM TABLET PO SCH (16:47)
[2025-05-14] MEDS: NA CHLORIDE 0.9% 100 ML ONE (16:54)
[2025-05-14 17:19] VITALS: BMI 22.8
[2025-05-14] MEDS: ENSURE HIGH PROTEIN 237 ML CAN PO SCH (20:18)
[2025-05-14] MEDS: HEPARIN 5000 UNIT/ML 1 ML VIAL SQ SCH (20:40)
[2025-05-14] MEDS: ONDANSETRON 4 MG/2 ML VIAL IV PRN (23:05)
[2025-05-15 05:45] LABS: Absolute Lymphocytes (CBC) 0.8 K/uL (0.7-4.9); Hematocrit 20.7 % (36.0-45.0); Hemoglobin 7.2 g/dL (12.0-15.0); MCH 33.0 pg (27.0-35.0); MCHC 34.7 g/dL (32.0-36.0); MCV 95.1 fL (80-100); MPV 9.9 fL (7.6-11.3); Nucleated RBC Absolute Count 0.0 (0-0); Nucleated Red Blood Cells % 0.0 % (0-0); RBC Red Blood Cell Count 2.18 M/uL (3.86-4.86); White Blood Count 4.00 thou/uL (4.3-10.9)
[2025-05-15 06:14] LABS: AST/SGOT 28 U/L (15-37); Albumin 2.1 g/dL (3.4-5.0); Albumin/Globulin Ratio 0.8 (1.1-1.8); Alkaline Phosphatase 59 U/L (45-117); Anion Gap 6.7 mEq/L (5.0-15.0); BUN Blood Urea Nitrogen 8 mg/dL (7-18); Globulin 2.6 g/dL (2.3-3.5); Glucose Level 88 mg/dL (74-106); Magnesium 1.2 mg/dL (1.6-2.4); Potassium 3.7 mEq/L (3.5-5.1); Thyroid Stimulating Hormone 0.908 uIU/mL (0.358-3.740)
[2025-05-15 06:18] LABS: ALT/SGPT < 14 U/L (13-56)
[2025-05-15] MEDS: Magnesium Sulfate 2gm IVPB 2 G/50 ML BAG IV ONE (08:42)
[2025-05-15] MEDS: FENOFIBRATE 160 MG TAB PO SCH (08:43)
[2025-05-15] MEDS: POTASSIUM CL SA 10 MEQ TAB PO ONE (08:43)
[2025-05-15] MEDS: PANTOPRAZOLE 40MG TABLET PO SCH (08:43)
[2025-05-15] MEDS: ASPIRIN 81 MG CHEWABLE TABLET PO SCH (08:43)
[2025-05-15] MEDS: CLOPIDOGREL 75 MG TABLET PO SCH (08:44)
[2025-05-15] MEDS: LOSARTAN POTASSIUM 50 MG TABLET PO SCH (08:44)
[2025-05-15] MEDS ORDERED: PANTOPRAZOLE 40 MG INJ IVP SCH (09:00)
[2025-05-15] MEDS ORDERED: CLOPIDOGREL 75 MG TABLET PO SCH (09:00)
--- NOTE | 2025-05-15 09:40 | P.PN ---
Date of Service: 05/15/25 Subjective: Still with nausea/vomiting this morning No other acute events overnight ROS: 10 point ROS as noted above, otherwise negative Physical exam GEN: Alert, oriented, NAD HEENT: Normal conjunctiva, sclera anicteric CV: Regular rate and rhythm, no edema Pulm: Nonlabored respirations on room air ABD: Soft, nontender, nondistended MSK: No joint tenderness Integumentary: No rashes Neuro: Normal speech, normal affect Vitals reviewed Assessment: Nausea/vomiting Hypokalemia/hypomagnesemia GERD SAVANA CAD Anemia/thrombocytopenia Hypertension Hyperlipidemia Weakness/deconditioning Plan: Nausea/vomiting Hypokalemia/hypomagnesemia Hypoalbuminemia GERD SAVANA CAD Reports very poor intake over the course of the last 15 days States chronic issues with vertigo and nausea/vomiting contributing Also reports that many foods that they get the back of her throat causes her to feel nauseous and vomit immediately Patient was attempting to arrange for EGD recently but waiting to be cleared from cardiology given her recent stent 12/30 Continue Protonix, Carafate PT consultation, speech consultation Gentle IV fluids, monitor chemistry daily Electrolyte protocols in place Anemia/thrombocytopenia Monitor CBC daily Further labs ordered to evaluate anemia SCDs for DVT prophylaxis Hypertension Hyperlipidemia Continue home medications when verified Weakness/deconditioning PT consultation, was recently discharged from SNF DVT PPX: SCD Code status: Full code Discharge Plan: Home Plan to discharge in: Greater than 2 days Time Spent Managing Pts Care (In Minutes): 35 <Salvador Fernandez - Last Filed: 05/15/25 09:39> Patient was seen and examined. Events of the last 24 hours have been noted. Spoke with with VIET regarding patient's clinical picture after evaluating and examining the patient independently. I performed a substantial part of the MDM during this patient's care today. I personally made or approved the documented management plan and acknowledge its risk of complications. I agree with the findings and documentation provided in the VIET's notes. <Burak Romo - Last Filed: 05/16/25 23:26>
--- NOTE | 2025-05-15 11:04 | RAD REPORT ---
EXAMINATION: UPPER EXTREMITY VENOUS UNILATE CLINICAL INDICATION: Left arm pain TECHNIQUE: Complete bilateral duplex sonography of the left upper extremity veins was performed. The examination included compression for vein patency, color Doppler imaging and flow augmentation in response to distal compression of the internal jugular,, subclavian, axillary, brachial, radial, ulna r, cephalic and basilic veins. .Grayscale, color and spectral analysis performed on all vessels COMPARISON: No prior exam. FINDINGS: Echogenic material consistent with acute thrombus is present within the cephalic vein at the level of the elbow. The internal jugular, subclavian, axillary, brachial, basilic, radial and ulnar veins are generally c ompressible and demonstrate augmentation. Color Doppler demonstrates good flow. IMPRESSION: Acute thrombus left cephalic vein
[2025-05-15] MEDS: FLUCONAZOLE 200mg IVPB 200 MG/100 ML BAG IV SCH (11:08)
[2025-05-15] MEDS: POTASSIUM PHOS 30 MM in NA CHLORIDE 0.9% 500 ML IV ONE (12:19)
[2025-05-15] MEDS: QUETIAPINE 25 MG TAB PO SCH (21:50)
[2025-05-15] MEDS: ATORVASTATIN 20 MG TAB PO SCH (21:50)
[2025-05-16 04:54] LABS: Absolute Lymphocytes (CBC) 0.8 K/uL (0.7-4.9); Hematocrit 19.1 % (36.0-45.0); Hemoglobin 6.4 g/dL (12.0-15.0); MCH 32.3 pg (27.0-35.0); MCHC 33.4 g/dL (32.0-36.0); MCV 96.6 fL (80-100); MPV 9.9 fL (7.6-11.3); Nucleated RBC Absolute Count 0.0 (0-0); Nucleated Red Blood Cells % 0.0 % (0-0); Percent Reticulocyte Count 0.87 % (0.4-2.05); RBC Red Blood Cell Count 1.98 M/uL (3.86-4.86); White Blood Count 2.90 thou/uL (4.3-10.9)
[2025-05-16 05:00] LABS: PT Prothrombin Time 12.9 SECONDS (10-13.0); PTT, Activated Partial Thromb 31.5 SECONDS (27.2-37.4); Protime INR 1.15
[2025-05-16 05:45] LABS: AST/SGOT 27 U/L (15-37); Albumin 2.0 g/dL (3.4-5.0); Albumin/Globulin Ratio 0.9 (1.1-1.8); Alkaline Phosphatase 52 U/L (45-117); Anion Gap 6.2 mEq/L (5.0-15.0); BUN Blood Urea Nitrogen 7 mg/dL (7-18); Ferritin 313.6 ng/mL (8-252); Globulin 2.2 g/dL (2.3-3.5); Glucose Level 84 mg/dL (74-106); Iron 87.0 ug/dL (50-170); Magnesium 1.5 mg/dL (1.6-2.4); Potassium 4.2 mEq/L (3.5-5.1)
[2025-05-16 05:46] LABS: ALT/SGPT < 14 U/L (13-56); C-Reactive Protein < 2.90 mg/L (<3.00)
[2025-05-16 05:48] LABS: AST/SGOT 27 U/L (15-37); Albumin 2.0 g/dL (3.4-5.0); Albumin/Globulin Ratio 0.9 (1.1-1.8); Alkaline Phosphatase 53 U/L (45-117); Anion Gap 7.2 mEq/L (5.0-15.0); BUN Blood Urea Nitrogen 7 mg/dL (7-18); Ferritin 313.6 ng/mL (8-252); Globulin 2.2 g/dL (2.3-3.5); Glucose Level 85 mg/dL (74-106); Iron 87.0 ug/dL (50-170); Magnesium 1.6 mg/dL (1.6-2.4); Potassium 4.2 mEq/L (3.5-5.1); Transferrin 134 mg/dL (200-360)
[2025-05-16 06:12] LABS: ALT/SGPT < 14 U/L (13-56)
--- NOTE | 2025-05-16 09:38 | P.PN ---
Date of Service: 05/16/25 Subjective: Tolerating some breakfast today so far No acute events overnight Hemoglobin downtrending, will receive unit of PRBC today ROS: 10 point ROS as noted above, otherwise negative Physical exam GEN: Alert, oriented, NAD HEENT: Normal conjunctiva, sclera anicteric CV: Regular rate and rhythm, no edema Pulm: Nonlabored respirations on room air ABD: Soft, nontender, nondistended MSK: No joint tenderness Integumentary: No rashes Neuro: Normal speech, normal affect Vitals reviewed Assessment: Nausea/vomiting Thrush Hypokalemia/hypomagnesemia GERD SAVANA CAD Right cephalic vein thrombosis Anemia/thrombocytopenia Hypertension Hyperlipidemia Weakness/deconditioning Plan: Nausea/vomiting Thrush Hypokalemia/hypomagnesemia Hypoalbuminemia GERD SAVANA CAD Started on fluconazole for thrush Reports very poor intake over the course of the last 15 days States chronic issues with vertigo and nausea/vomiting contributing Also reports that many foods that they get the back of her throat causes her to feel nauseous and vomit immediately Patient was attempting to arrange for EGD recently but waiting to be cleared from cardiology given her recent stent 12/30 Continue Protonix, Carafate PT consultation, speech consultation Gentle IV fluids, monitor chemistry daily Electrolyte protocols in place Right cephalic vein thrombosis Anemia and thrombocytopenia present Not a DVT Will hold off on therapeutic anticoagulation at this time Anemia/thrombocytopenia Monitor CBC daily Further labs ordered to evaluate anemia SCDs for DVT prophylaxis Hypertension Hyperlipidemia Continue home medications when verified Weakness/deconditioning PT consultation, was recently discharged from SNF DVT PPX: SCD Code status: Full code Discharge Plan: Home Plan to discharge in: Greater than 2 days Time Spent Managing Pts Care (In Minutes): 35 <Salvador Fernandez - Last Filed: 05/16/25 09:36> Patient was seen and examined. Events of the last 24 hours have been noted. Spoke with with VIET regarding patient's clinical picture after evaluating and examining the patient independently. I performed a substantial part of the MDM during this patient's care today. I personally made or approved the documented management plan and acknowledge its risk of complications. I agree with the findings and documentation provided in the VIET's notes. Patient with dysphagia and difficulty with his nutrition. Patient had dressing was given Diflucan and nystatin. Patient was eating much better today. A F rench toast and had her 1st meal and a couple of weeks. We will continue with nutritional support and get physical therapy and speech therapy evaluation. Patient also has some tenderness on the forearm after IV insertion and an ultrasound was ordered which showed a small cephalic vein thrombosis. Did warm compressors and her symptoms have pretty much resolved. Patient was given 1 units of packed red blood cells and hemoglobin is stable. Plan to work with physical therapy and speech therapy and make a decision on plan of care going forward. Patient wants to go home but she may need shelter facility prior to discharging. <Burak Romo - Last Filed: 05/16/25 23:32>
[2025-05-16] MEDS: NA CHLORIDE 0.9% 250 ML ONE (09:39)
[2025-05-16 15:37] LABS: Hematocrit 25.1 % (36.0-45.0); Hemoglobin 8.4 g/dL (12.0-15.0)
[2025-05-16 15:48] LABS: Magnesium 1.4 mg/dL (1.6-2.4)
[2025-05-16 16:18] LABS: C-Reactive Protein < 2.90 mg/L (<3.00)
[2025-05-17 07:24] LABS: Absolute Lymphocytes (CBC) 0.7 K/uL (0.7-4.9); Hematocrit 25.8 % (36.0-45.0); Hemoglobin 8.6 g/dL (12.0-15.0); MCH 31.7 pg (27.0-35.0); MCHC 33.1 g/dL (32.0-36.0); MCV 95.8 fL (80-100); MPV 10.4 fL (7.6-11.3); Nucleated RBC Absolute Count 0.0 (0-0); Nucleated Red Blood Cells % 0.0 % (0-0); RBC Red Blood Cell Count 2.70 M/uL (3.86-4.86); White Blood Count 3.10 thou/uL (4.3-10.9)
[2025-05-17 07:42] LABS: ALT/SGPT 17.0 U/L (13-56); AST/SGOT 23.0 U/L (15-37); Albumin 2.0 g/dL (3.4-5.0); Albumin/Globulin Ratio 0.9 (1.1-1.8); Alkaline Phosphatase 49.0 U/L (45-117); Anion Gap 9.1 mEq/L (5.0-15.0); BUN Blood Urea Nitrogen 6.0 mg/dL (7-18); Globulin 2.3 g/dL (2.3-3.5); Glucose Level 82.0 mg/dL (74-106); Magnesium 1.3 mg/dL (1.6-2.4); Potassium 4.1 mEq/L (3.5-5.1)
[2025-05-17] MEDS: Magnesium Sulfate 2gm IVPB 2 G/50 ML BAG IV ONE (08:26)
--- NOTE | 2025-05-17 09:18 | P.PN ---
Date of Service: 05/17/25 Subjective: Tolerating some breakfast today so far No acute events overnight Hemoglobin stable after blood transfusion yesterday Appetite improving, overall improving ROS: 10 point ROS as noted above, otherwise negative Physical exam GEN: Alert, oriented, NAD HEENT: Normal conjunctiva, sclera anicteric CV: Regular rate and rhythm, no edema Pulm: Nonlabored respirations on room air ABD: Soft, nontender, nondistended MSK: No joint tenderness Integumentary: No rashes Neuro: Normal speech, normal affect Vitals reviewed Assessment: Nausea/vomiting Thrush Hypokalemia/hypomagnesemia GERD SAVANA CAD Right cephalic vein thrombosis Anemia/thrombocytopenia Hypertension Hyperlipidemia Weakness/deconditioning Plan: Nausea/vomiting Thrush Hypokalemia/hypomagnesemia Hypoalbuminemia GERD SAVANA CAD Started on fluconazole for thrush Reports very poor intake over the course of the last 15 days States chronic issues with vertigo and nausea/vomiting contributing Also reports that many foods that they get the back of her throat causes her to feel nauseous and vomit immediately Patient was attempting to arrange for EGD recently but waiting to be cleared from cardiology given her recent stent 12/30 Continue Protonix, Carafate PT consultation, speech consultation Improving after starting treatment for thrush Gentle IV fluids, monitor chemistry daily Electrolyte protocols in place CT abdomen pelvis this morning to rule out other causes Right cephalic vein thrombosis Anemia and thrombocytopenia present Not a DVT Will hold off on therapeutic anticoagulation at this time Anemia/thrombocytopenia Monitor CBC daily Further labs ordered to evaluate anemia placed SCDs for DVT prophylaxis Status post 1 unit PRBC 05/16 Repeat hemoglobin stable today Hypertension Hyperlipidemia Continue home medications when verified Weakness/deconditioning PT consultation, was recently discharged from SNF DVT PPX: SCD Code status: Full code Discharge Plan: Home Plan to discharge in: Greater than 2 days Time Spent Managing Pts Care (In Minutes): 35 <Salvador Fernandez - Last Filed: 05/17/25 09:17> I Have personally reviewed this patient's chart, progress note, and plan of care as documented. I agree with Salvador Berg NP the assessment and plan as outlined, with any additional comments or modifications noted below <Elisabeth Cisneros - Last Filed: 05/17/25 14:59>
--- NOTE | 2025-05-17 10:54 | RAD REPORT ---
EXAMINATION: CT ABDOMEN AND PELVIS WITH CONTRAST CLINICAL INDICATION: Abdominal pain TECHNIQUE: CT abdomen and pelvis was performed, after the administration of 100 cc Isovue-300.. Sagit aby and coronal reconstructions were obtained. One or more of the following dose reduction techniques were used: Automated exposure control, adjustment of the mA and kV according to patient si ze, and iterative reconstruction. Unless otherwise specified, incidental findings do not require dedicated imaging follow-up. [id number]. Oral contrast was given. . COMPARISON: .April 2025 FINDINGS: Thickening of the wall of the distal stomach. [id number] right and small left pleural effusions with bibasilar atelectasis Cholecystectomy. Liver, spleen, pancreas, adrenals and left kidney unremarkable. Tiny right renal cys t. Hysterectomy. No adnexal mass. Small amount of free fluid. The wall of the transverse colon appears mildly thickened. Atherosclerosis. : IMPRESSION: Thickening of the wall of the distal stomach probably inflammation Wall of transverse colon appears mildly thickened. This could be secondary to incomplete distention o r colitis
[2025-05-17 11:48] LABS: Blood Morphology Comment NOTED (NOT SEEN); White Blood Cell Scan OK (OK)
[2025-05-17 11:49] LABS: Anisocytosis 1+
[2025-05-17] MEDS: MAGNESIUM SULFATE 1 gm IVPB 1 GM/100 ML BAG IV ONE (21:40)
[2025-05-18 05:30] LABS: Absolute Lymphocytes (CBC) 0.7 K/uL (0.7-4.9); Hematocrit 24.4 % (36.0-45.0); Hemoglobin 8.1 g/dL (12.0-15.0); MCH 31.8 pg (27.0-35.0); MCHC 33.1 g/dL (32.0-36.0); MCV 96.2 fL (80-100); MPV 10.1 fL (7.6-11.3); Nucleated RBC Absolute Count 0.0 (0-0); Nucleated Red Blood Cells % 0.1 % (0-0); RBC Red Blood Cell Count 2.53 M/uL (3.86-4.86)
[2025-05-18 05:31] LABS: White Blood Count 2.90 thou/uL (4.3-10.9)
[2025-05-18 05:52] LABS: AST/SGOT 28 U/L (15-37); Albumin 2.0 g/dL (3.4-5.0); Albumin/Globulin Ratio 0.8 (1.1-1.8); Alkaline Phosphatase 52 U/L (45-117); Anion Gap 5.7 mEq/L (5.0-15.0); BUN Blood Urea Nitrogen 6 mg/dL (7-18); Globulin 2.4 g/dL (2.3-3.5); Glucose Level 93 mg/dL (74-106); Magnesium 1.9 mg/dL (1.6-2.4); Potassium 3.7 mEq/L (3.5-5.1)
[2025-05-18 05:54] LABS: ALT/SGPT < 14 U/L (13-56)
[2025-05-18] MEDS: POTASSIUM CL SA 10 MEQ TAB PO ONE (08:00)
--- NOTE | 2025-05-18 15:43 | P.PN ---
Subjective Date of Service: 05/18/25 Chief Complaint: Hypomagnesemia, weakness Subjective: No chest pain or shortness of breath. No nausea or vomiting. No abdominal pain. No obvious bleeding. Looks comfortable in the bed. Objective: General appearance: Alert and comfortable CVS: Normal S1 and S2 Lungs: Clear to auscultation bilaterally Abdomen: Soft, bowel sounds present, no tenderness Extremities: No lower extremity edema Physical Examination - Vital Signs Temperature: 97.8 F Blood Pressure: 185/80 Pulse: 62 Respirations: 20 Pulse Ox (%): 99 Assessment And Plan - Plan Nausea/vomiting Thrush Hypokalemia/hypomagnesemia GERD SAVANA CAD Left cephalic vein thrombosis Anemia/thrombocytopenia Hypertension Hyperlipidemia Weakness/deconditioning Plan: Nausea/vomiting Thrush Hypokalemia/hypomagnesemia Hypoalbuminemia GERD SAVANA CAD Started on fluconazole for thrush Reports very poor intake over the course of the last 15 days States chronic issues with vertigo and nausea/vomiting contributing Also reports that many foods that they get the back of her throat causes her to feel nauseous and vomit immediately Patient was attempting to arrange for EGD recently but waiting to be cleared from cardiology given her recent stent 12/30 Continue Protonix, Carafate PT consultation, speech consultation Improving after starting treatment for thrush Gentle IV fluids, monitor chemistry daily Electrolyte protocols in place CT abdomen pelvis showed stomach and colon thickening, need close follow-up with GI as an outpatient. Left cephalic vein thrombosis Not a DVT Will hold off on therapeutic anticoagulation at this time Anemia/thrombocytopenia /pancytopenia Monitor CBC daily SCDs for DVT prophylaxis Status post 1 unit PRBC 05/16 Repeat hemoglobin stable today Hypertension Hyperlipidemia BP high, adjusted meds Weakness/deconditioning PT consultation, was recently discharged from SNF Plan discussed with patient and nursing staff. Discussed with the case management team.
[2025-05-18] MEDS: AMLODIPINE 5 MG TAB PO SCH (16:11)
[2025-05-18] MEDS: HYDRALAZINE HCL 20 MG/ML VIAL IV PRN (16:12)
[2025-05-19 07:49] LABS: Absolute Lymphocytes (CBC) 0.8 K/uL (0.7-4.9); Hematocrit 24.1 % (36.0-45.0); Hemoglobin 8.2 g/dL (12.0-15.0); MCH 32.6 pg (27.0-35.0); MCHC 34.1 g/dL (32.0-36.0); MCV 95.4 fL (80-100); MPV 10.0 fL (7.6-11.3); Nucleated RBC Absolute Count 0.0 (0-0); Nucleated Red Blood Cells % 0.3 % (0-0); RBC Red Blood Cell Count 2.53 M/uL (3.86-4.86); White Blood Count 3.40 thou/uL (4.3-10.9)
[2025-05-19 08:09] LABS: Anion Gap 7.8 mEq/L (5.0-15.0); BUN Blood Urea Nitrogen 5.0 mg/dL (7-18); Glucose Level 91.0 mg/dL (74-106); Magnesium 1.3 mg/dL (1.6-2.4); Potassium 3.8 mEq/L (3.5-5.1)
[2025-05-19] MEDS: POTASSIUM PHOS 30 MM in NA CHLORIDE 0.9% 500 ML IV ONE (09:01)
[2025-05-19] MEDS: MAGNESIUM 50% 3 GM in NA CHLORIDE 0.9% 100 ML IV ONE (09:02)
[2025-05-19 11:59] VITALS: O2SAT 97
--- NOTE | 2025-05-19 15:13 | P.PN ---
Subjective Date of Service: 05/19/25 Chief Complaint: Hypomagnesemia, weakness Subjective: No chest pain or shortness of breath. No nausea or vomiting. No abdominal pain. No obvious bleeding. Looks comfortable in the bed. Objective: General appearance: Alert and comfortable Mouth: Oral thrush improving. CVS: Normal S1 and S2 Lungs: Clear to auscultation bilaterally Abdomen: Soft, bowel sounds present, no tenderness Extremities: No lower extremity edema Physical Examination - Vital Signs Temperature: 98.2 F Blood Pressure: 136/63 Pulse: 83 Respirations: 20 Pulse Ox (%): 97 Assessment And Plan - Plan Nausea/vomiting Thrush Hypokalemia/hypomagnesemia GERD SAVANA CAD Left cephalic vein thrombosis Anemia/thrombocytopenia Hypertension Hyperlipidemia Weakness/deconditioning Plan: Nausea/vomiting Thrush Hypokalemia/hypomagnesemia Hypoalbuminemia GERD SAVANA CAD Started on fluconazole for thrush Reports very poor intake over the course of the last 15 days States chronic issues with vertigo and nausea/vomiting contributing Also reports that many foods that they get the back of her throat causes her to feel nauseous and vomit immediately Patient was attempting to arrange for EGD recently but waiting to be cleared from cardiology given her recent stent 12/30 Continue Protonix, Carafate PT consultation, speech consultation Improving after starting treatment for thrush Electrolyte protocols in place CT abdomen pelvis showed stomach and colon thickening, need close follow-up with GI as an outpatient. Left cephalic vein thrombosis Not a DVT Will hold off on therapeutic anticoagulation at this time Anemia/thrombocytopenia /pancytopenia Monitor CBC daily SCDs for DVT prophylaxis Status post 1 unit PRBC 05/16 Repeat hemoglobin stable today Hypertension Hyperlipidemia BP proving, continue losartan, added Norvasc yesterday. Weakness/deconditioning PT consultation, was recently discharged from SNF Plan discussed with patient and nursing staff. Discussed with the case management team. Discussed with son at bedside, they prefer to go home once electrolytes better.
[2025-05-20 06:50] LABS: Absolute Lymphocytes (CBC) 0.7 K/uL (0.7-4.9); Hematocrit 23.9 % (36.0-45.0); Hemoglobin 8.0 g/dL (12.0-15.0); MCH 32.3 pg (27.0-35.0); MCHC 33.5 g/dL (32.0-36.0); MCV 96.5 fL (80-100); MPV 10.0 fL (7.6-11.3); Nucleated RBC Absolute Count 0.0 (0-0); Nucleated Red Blood Cells % 0.2 % (0-0); RBC Red Blood Cell Count 2.47 M/uL (3.86-4.86); White Blood Count 3.00 thou/uL (4.3-10.9)
[2025-05-20 07:15] LABS: Anion Gap 8.0 mEq/L (5.0-15.0); BUN Blood Urea Nitrogen 4.0 mg/dL (7-18); Glucose Level 91.0 mg/dL (74-106); Magnesium 1.9 mg/dL (1.6-2.4); Potassium 4.0 mEq/L (3.5-5.1)
[2025-05-20 09:16] LABS: Anisocytosis 1+; White Blood Cell Scan OK (OK)
[2025-05-20 09:17] LABS: Blood Morphology Comment NOTED (NOT SEEN)
--- NOTE | 2025-05-20 11:06 | P.DS ---
Admission Date: 05/14/25 Discharge Date: 05/20/25 Disposition: ROUTINE DISCHARGE Discharge Condition: GOOD Reason for Admission: Hypomagnesemia, weakness Hospital Course: Nausea/vomiting Thrush Hypokalemia/hypomagnesemia GERD SAVANA CAD Left cephalic vein thrombosis Anemia/thrombocytopenia Hypertension Hyperlipidemia Weakness/deconditioning Plan: Nausea/vomiting Thrush Hypokalemia/hypomagnesemia GERD SAVANA CAD Started on fluconazole for thrush, clinically improved, finish the course of fluconazole. Reports very poor intake over the course of the last 15 days prior to admission, oral intake improving. States chronic issues with vertigo and nausea/vomiting contributing Patient was attempting to arrange for EGD recently but waiting to be cleared from cardiology given her recent stent 12/30, need to follow-up with GI as an outpatient. Continue Protonix, Carafate CT abdomen pelvis showed stomach and colon thickening, need close follow-up with GI as an outpatient. Left cephalic vein thrombosis Not a DVT Supportive care for now. Anemia/thrombocytopenia /pancytopenia Close follow-up with PCP and oncology Status post 1 unit PRBC 05/16 Blood counts have been stable for the last few days. Hypertension Hyperlipidemia BP improving, continue losartan, added Norvasc Weakness/deconditioning Improving Hospital course: 79-year-old patient admitted with nausea, vomiting and electrolyte abnormalities, there was some concern of thrush, she was started on oral fluconazole and electrolytes replaced, she was continued on Protonix, added Carafate, with all these treatment,her symptoms improved, her electrolytes are better today, I discussed with the patient and son yesterday, they preferred to go home once electrolytes are better, when I see the patient she is doing well without any acute problems, her oral intake is better, electrolytes better, otherwise no other acute issues going on so I am planning to discharge her to go home and close follow-up with PCP, GI and oncology. Subjective: No chest pain or shortness of breath. No nausea or vomiting. No abdominal pain. No obvious bleeding. Looks comfortable in the bed. Eating better. Objective: General appearance: Alert and comfortable Mouth: Oral thrush better. CVS: Normal S1 and S2 Lungs: Clear to auscultation bilaterally Abdomen: Soft, bowel sounds present, no tenderness Extremities: No lower extremity edema Plan discussed with patient and nursing staff. Discussed with the case management team. Vital Signs/Physical Exam: Temp Pulse Resp BP Pulse Ox 97.6 F 81 18 155/69 H 97 05/20/25 08:00 05/20/25 08:00 05/20/25 08:00 05/20/25 08:00 05/20/25 08:00 Laboratory Data at Discharge: WBC 3.00 thou/uL (4.3-10.9) L 05/20/25 06:07 Hgb 8.0 g/dL (12.0-15.0) L 05/20/25 06:07 Hct 23.9 % (36.0-45.0) L 05/20/25 06:07 Plt Count 74 thou/uL (152-406) L 05/20/25 06:07 PT 12.9 SECONDS (10-13.0) 05/16/25 04:39 INR 1.15 05/16/25 04:39 APTT 31.5 SECONDS (27.2-37.4) 05/16/25 04:39 Sodium 142 mEq/L (136-145) 05/20/25 06:07 Potassium 4.0 mEq/L (3.5-5.1) 05/20/25 06:07 BUN 4 mg/dL (7-18) L 05/20/25 06:07 Creatinine 0.91 mg/dL (0.55-1.02) 05/20/25 06:07 Glucose 91 mg/dL (74-106) 05/20/25 06:07 Phosphorus 3.6 mg/dL (2.5-4.9) 05/20/25 06:07 Magnesium 1.9 mg/dL (1.6-2.4) 05/20/25 06:07 Total Bilirubin 0.6 mg/dL (0.2-1.0) 05/18/25 04:46 AST 28 U/L (15-37) 05/18/25 04:46 ALT < 14 U/L (13-56) 05/18/25 04:46 Alkaline Phosphatase 52 U/L (45-117) 05/18/25 04:46 Lipase 16 U/L (13-75) 05/14/25 13:23 Home Medications: Atorvastatin Calcium [Lipitor*] 20 mg PO BEDTIME 11/16/22 Fenofibrate,Micronized [Fenofibrate] 134 mg PO DAILY 11/16/22 Losartan Potassium 100 mg PO DAILY 11/16/22 Pantoprazole [Protonix Tab*] 40 mg PO DAILY 11/16/22 Quetiapine Fumarate [Seroquel] 75 mg PO BEDTIME 11/16/22 Aspirin 81 mg PO DAILY 04/12/25 Ondansetron HCl 8 mg PO DAILY 04/12/25 Clopidogrel Bisulfate [Plavix*] 75 mg PO DAILY 05/14/25 Amlodipine [Norvasc*] 5 mg PO DAILY #30 tab 05/20/25 Sucralfate [Carafate*] 1 gm PO ACHS #30 tab 05/20/25 New Medications: Sucralfate [Carafate*] 1 gm PO ACHS #30 tab Amlodipine [Norvasc*] 5 mg PO DAILY #30 tab Followup: NONE,NONE [UNKNOWN] - 2-3 Days (Follow-up with PCP in 5 to 7 days with CBC and CMP, you will need oncology and GI follow-up regarding pancytopenia, stomach and colon thickening, PCP to set up oncology follow-up.) Gordo Gates MD [ASSOCIATE-ACTIVE - CAN ADMIT] - (Follow-up in 1 to 2 weeks regarding stomach and colon thickening) Time spent managing pt's care (in minutes): 34
[2025-05-20 12:46] VITALS: BP 143/64; TEMP 98
== END 2025-05-20 16:00 | disposition home health service (06) | DRG 641 ==
LOC: ER 12:45 → ERHOLD 14:55 → 2ND 15:23
PROVIDERS: ADMIT Hospitalist; ATTEND Hospitalist
PROC: 30233N1 Transfusion of Nonautologous Red Blood Cells into Peripheral Vein, Percutaneous Approach (ICD-10-PCS; principal; 2025-05-16)
DX: E83.42 Hypomagnesemia (principal); N17.9 Acute kidney failure, unspecified; D61.818 Other pancytopenia; E44.0 Moderate protein-calorie malnutrition; I82.611 Acute embolism and thrombosis of superficial veins of right upper extremity; E87.6 Hypokalemia; Z68.22 Body mass index [BMI] 22.0-22.9, adult; I10 Essential (primary) hypertension; E78.00 Pure hypercholesterolemia, unspecified; K21.9 Gastro-esophageal reflux disease without esophagitis; E88.09 Other disorders of plasma-protein metabolism, not elsewhere classified; I25.2 Old myocardial infarction; I25.10 Atherosclerotic heart disease of native coronary artery without angina pectoris; B37.9 Candidiasis, unspecified; R42 Dizziness and giddiness; Z95.5 Presence of coronary angioplasty implant and graft; Z79.82 Long term (current) use of aspirin; Z79.02 Long term (current) use of antithrombotics/antiplatelets; Z90.49 Acquired absence of other specified parts of digestive tract; Z79.899 Other long term (current) drug therapy; Z90.710 Acquired absence of both cervix and uterus; Z11.52 Encounter for screening for COVID-19
CPT/HCPCS: 36415; 36430; 71045; 74177; 80048; 80053; 80076; 81001; 82607; 82728; 83540; 83690; 83735; 83880; 84100; 84439; 84443; 84466; 84484; 85014; 85018; 85025; 85044; 85610; 85730; 86140; 86850; 86870; 86900; 86901; 86920; 86922; 87428; 92610; 93005; 93971; 96365; 96375; 97116; 97161; 97530; 99285; J0360; J1450; J1644; J2405; J3475; J3480; J7040; J7050; P9016; Q9967